=== PATIENT | female | born 1955 | race Caucasian/White ===

== ENCOUNTER → 2017-03-10 | Outpatient (CLI) | payer BC ==
[~2017-03-10] MED LIST: DIPH25TA32 PO; LEVO125T72 PO; MULTTAB58 PO; MXZC25 PO; OMEG10007 PO
--- NOTE | 2017-03-11 14:02 | MAMMOGRAPHY REPORT ---
BILATERAL DIGITAL SCREENING MAMMOGRAM TOMOSYNTHESIS WITH CAD: 03/10/2017 CLINICAL HISTORY: Routine screening. Patient has no complaints. TECHNIQUE: Breast tomosynthesis in addition to standard 2D mammography was performed. Current study was also evaluated with a Computer Aided Detection (CAD) system. COMPARISON: Comparison is made to exams dated: 03/05/2016 mammogram, 08/16/2013 mammogram, 08/24/2014 ma mmogram, 07/12/2012 mammogram, 07/09/2011 mammogram, and 06/25/2010 mammogram - [facility]. BREAST COMPOSITION: There are scattered areas of fibroglandular density in both breasts. FINDINGS: There is a stable grouping of punctate microcalcifications in the right upper outer quadran t. Stable nodularity in the superior right breast. No suspicious mass, architectural distortion or cluster of microcalcifications is seen. IMPRESSION: ACR BI-RADS CATEGORY 1: NEGATIVE There is no mammographic evidence of malignancy. A 1 year screening mammogram is recommended. The pa tient will receive written notification of the results. Approximately 10% of breast cancers are not detected with mammography. A negative mammographic report should not delay biopsy if a clinically suggestive mass is present. Abida Jackson M.D. ay/:03/10/2017 15:38:07 Change Room Attendant: Nemo Alonso, [facility] letter sent: Normal 1/2 BI-RADS Code: ACR BI-RADS Category 1: Negative
== END | disposition home or self-care (01) ==
LOC: C.MAMM 15:11
PROVIDERS: ATTEND Obstetrics & Gynecology
DX: Z12.31 Encounter for screening mammogram for malignant neoplasm of breast (principal)

== ENCOUNTER → 2018-03-11 | Outpatient (CLI) | payer BC ==
[~2018-03-11] MED LIST changes: -DIPH25TA32 PO; +DIPH25TA33 PO
--- NOTE | 2018-03-11 15:26 | MAMMOGRAPHY REPORT ---
BILATERAL DIGITAL SCREENING MAMMOGRAM TOMOSYNTHESIS WITH CAD: 03/11/2018 CLINICAL HISTORY: Routine screening. Patient has no complaints. TECHNIQUE: The study was acquired using full field digital technology and interpreted from soft copy. Breast tomosynthesis in addition to standard 2D mammography was performed. Current study was also ev aluated with a Computer Aided Detection (CAD) system. COMPARISON: Comparison is made to exams dated: 03/10/2017 mammogram, 03/05/2016 mammogram, 08/24/2014 teri mogram, 07/12/2012 mammogram, 07/09/2011 mammogram - [facility], and 01/24/2009. BREAST COMPOSITION: There are scattered areas of fibroglandular density in both breasts. FINDINGS: No suspicious masses, calcifications, or areas of architectural distortion are noted in either breast . There has been no significant interval change compared to prior exams. IMPRESSION: ACR BI-RADS CATEGORY 1: NEGATIVE There is no mammographic evidence of malignancy. A 1 year screening mammogram is recommended.( 019) The patient will receive written notification of the results. Some breast cancers are not detected with mammography. A negative mammographic report should not kristen y biopsy if a clinically suggestive mass is present. Jo-Ann Abbott M.D. ah/:03/11/2018 14:32:18 Oil Change Technician: RT David(Chasidy)(M), [facility] letter sent: Normal 1/2 BI-RADS Code: ACR BI-RADS Category 1: Negative
== END | disposition home or self-care (01) ==
LOC: C.MAMM 14:04
PROVIDERS: ATTEND Family Medicine
DX: Z12.31 Encounter for screening mammogram for malignant neoplasm of breast (principal)

== ENCOUNTER 2024-04-02 20:17 | Observation (INO) ==
--- NOTE | 2024-04-02 20:48 | Emergency Department Note ---
Impression & Plan COVID-19, Hypoxia, Generalized weakness ED Provider Note Name: JENNY CARVAJAL Age: 68 Sex: Female Arrives Via: Walk-In Informant: Patient ED Provider: Zackary Varner MD Chief Complaint: Illness Impression: As per impressions above Medical Decision Makin-year-old female with history of hypertension, dyslipidemia, hypothyroidism, diabetes, fatty liver arrives for evaluation of illness. Worsening illness for the last day associated weakness fatigue fevers and chills. Does have a cough and runny nose. Chest x-ray is reassuring, labs are unremarkable other than mildly elevated blood sugar as well as a positive COVID test. While in department patient's oxygen continues to drop and she is now requiring nasal cannula O2. She is not significantly dyspneic and does not have findings of DVT or PE at this time. I do not think CT PE study would be indicated given more likely cause is her COVID infection. Offered steroids as standard of care which patient declines at this time. Given her hypoxia hospitalist was consulted who had further discussions with her and I will bring her in for further management. Triage/Nursing Notes reviewed by Me Differential:COVID, flu, pneumonia, sepsis, viral NOS, many other pathologies considered Vital Signs: reviewed and remarkable for hypoxia, tachycardia Interventions: Normal saline bolus 1 L IV, Tylenol 1 g IV Labs:ED labs Reviewed by me and remarkable for positive COVID testing Imagin view chest x-ray as per my interpretation no infiltrate or effusion appreciated. Cardiac/Tele Monitoring: Cardiac Monitoring: An Order was placed for continuous cardiac monitoring. The monitor shows a rate of 120 with a sinus tach rhythm. Consults:Discussed with Dr. [facility] who will bring inpatient for further management Plan: Disposition:Hospitalization. Condition: Good History of Present Illness: 60-year-old female arrives for evaluation of illness. Patient has been sick for the last day or so. Increasing weakness fatigue generalized aches and pains. Associate with fevers and chills. Mild associated cough and runny nose. Does note that she has been having a bit of a sore throat. Patient has been using Tylenol periodically at home with mild improvement. Due to worsening weakness she arrives to the ER as she cannot even get around the house she feels so fatigued. Denies any falls, trauma, injuries. No known sick contacts. No difficulty breathing, chest pain, abdominal pain, nausea, vomiting, urinary symptoms, leg swelling, rashes or other concerning signs or symptoms Past Medical History: Diabetes, hypothyroidism, fatty liver, hyperlipidemia, Home Medications:See Below Allergies: Ibuprofen, naproxen, NSAIDs Vitals:Blood Pressure: 132/68, Pulse 116, RR 18, T 37.7C, O2 97% on RA Physical Exam: GENERAL: Patient is unwell/tired appearing and in moderate distress. Dry mucous membranes though rhinorrhea noted. RESPIRATORY: Mild tachypnea/dyspnea on examination. Clear to auscultation and equal bilaterally. CARDIOVASCULAR: Tachycardia.No murmur appreciated. GASTROINTESTINAL: Abdomen soft, non-tender, no peritonitis. EXTREMITIES: Normal motion all extremities, no cyanosis, no edema. NEUROLOGIC: Alert and oriented. No focal neurologic deficits appreciated SKIN: No rash, no jaundice, no diaphoresis. PSYCH: Appropriate GCS: 15 ED Course: Times/Reassessments: Patient is stable she is a bit hesitant about steroids though she is agreeable to hospitalization. Zackary Varner MD Past Med/Surg History Problem List (Updated 04/03/24 @ 01:05 by Zackary Varner MD) Generalized weakness (Acute) Hypoxia (Acute) COVID-19 (Acute) Dizziness Encounter to discuss test results Acute sinusitis History of colon polyps Encounter for pre-operative examination Hyperglycemia due to diabetes mellitus Elevated liver function tests UTI (urinary tract infection) Psychosocial stressors Fatigue Headache Left ankle injury (Acute) History of tooth extraction Routine health maintenance (Chronic) Abnormal liver function test (Acute) Benign hypertension (Chronic 11/18/12) Drug-induced anaphylaxis (Acute) Trochanteric bursitis (Acute) Vitamin D deficiency (Chronic) NAFLD (nonalcoholic fatty liver disease) H/O thyroidectomy (Acute 11/18/12) Acid reflux (Acute) Benign essential hypertension (Acute) Pawan's thyroiditis (Acute) hx Hyperlipidemia (Chronic) Hypothyroidism (Chronic) Uncontrolled diabetes mellitus (Chronic) Medical History Environmental and seasonal allergies History of Mohs micrographic surgery for skin cancer Surgical History Hx of colonoscopy History of dilatation and curettage Family History Mother Breast cancer Dementia Hypertension Transient ischemic attack, acute Father GERD (gastroesophageal reflux disease) Pancreatic cancer Denies family history of Ovarian cancer Prostate cancer Myocardial infarction Colorectal cancer Uterus cancer Social History Smoking Status: Never smoker Second Hand Exposure: No; Do You Dip or Chew Tobacco: No; Hx Alcohol Use: Yes Alcohol type: wine Hx Substance Use: No Preferred Language: Scottish Communication Ability: Effective Uniform Room Attendant Required: No Beliefs That Will Affect Care: None marital status: Current Living Situation: Spouse current occupational status: employed How many Children do You have: 2 Feels Safe at Home: Yes Childhood Exposure to Second-Hand Smoke: Yes Diet: regular caffeine: Yes Dental Care, Regularly: Yes Physical Activity Frequency: 1-2 Times per Week Seatbelt Use: always Sunscreen Use: Yes Assistive Devices: Glasses Allergies Allergies Allergy/AdvReac Type Severity Reaction Status Date / Time ibuprofen Allergy Severe tongue Verified 04/02/24 22:28 swelling naproxen Allergy Severe tongue Verified 04/02/24 22:28 swelling house dust mite Allergy Mild Sneezing Verified 04/02/24 22:28 NSAIDS (Non-Steroidal AdvReac Severe face,mouth, Verified 04/02/24 22:28 Anti-Inflamma and throat swelling Home Meds Home Medications Medication Instructions Recorded Confirmed ascorbic acid (vitamin C) 500 mg 500 mg PO QPM 11/20/18 04/02/24 tablet (Vitamin C) vitamin B complex 1 tab PO QPM 11/20/18 04/02/24 magnesium oxide 500 mg capsule 500 mg PO QPM 01/17/19 04/02/24 cholecalciferol (vitamin D3) 50 50 mcg PO QPM 07/04/21 04/02/24 mcg (2,000 unit) capsule potassium gluconate 600 mg (99 mg) 600 mg PO QPM 07/04/21 04/02/24 tablet mecobalamin (vitamin B12) 1,000 500 mcg PO QPM 03/17/22 04/02/24 mcg chewable tablet ferrous sulfate 325 mg (65 mg 325 mg PO QPM 02/19/23 04/02/24 iron) tablet,delayed release loratadine 10 mg capsule 10 mg PO QPM 10/29/23 04/02/24 triamterene 37.5 0.5 tab PO DAILY 02/17/24 04/02/24 mg-hydrochlorothiazide 25 mg tablet cranberry extract 500 mg capsule 500 mg PO QPM 04/02/24 04/02/24 epinephrine 0.3 mg/0.3 mL 0.3 mg IM DIRECTED PRN 04/02/24 04/02/24 injection, auto-injector hypersensitivity reaction levothyroxine 88 mcg tablet 88 mcg PO QPM 04/02/24 04/02/24 (Synthroid) Previous Rx's Medication Instructions Recorded atorvastatin 40 mg tablet 40 mg PO QPM #90 tabs 10/19/22 blood sugar diagnostic (Accu-Chek #200 ea 10/19/23 Guide test strips) blood-glucose meter (Accu-Chek #1 ea 10/19/23 Guide Glucose Meter) lancets (Accu-Chek Fastclix Lancet #50 ea 10/19/23 Drum) metformin 500 mg tablet,extended 1,000 mg (2 x 500 mg) PO BID 90 12/09/23 release 24 hr days #360 tabs meclizine 50 mg tablet 50 mg PO BID PRN dizziness #30 tabs 03/16/24 Results & Data (ED) Vital Signs Vital Signs - 24 hr 04/02/24 20:20 04/02/24 20:31 04/02/24 20:44 Temperature 37.7 C H Temperature Source Temporal Artery Scan Pulse Rate 121 H 116 H Pulse Rate [Apical] 115 H Pulse Rhythm Pulse Rhythm [Apical] Regular Pulse Strength [Apical] Normal Respiratory Rate 18 18 Respiratory Effort / Characteristics Non-Labored Spontaneous Non-Labored Spontaneous Respiratory Depth Normal Normal Respiratory Pattern Regular Regular Blood Pressure 132/68 Blood Pressure [Right Arm] 160/84 H Blood Pressure Mean 89 Blood Pressure Mean [Right Arm] 109 Blood Pressure Position [Right Arm] Lying Pulse Oximetry 97 95 Oxygen Delivery Method Room Air Room Air Oxygen Flow Rate Sepsis Recent Fever Within 48 Hours No Sepsis New/Unexplained Change in Mental Status N/A Sepsis Action Taken by Nursing No Action Required 04/02/24 22:18 04/02/24 22:58 04/02/24 23:00 Temperature 37.1 C Temperature Source Oral Pulse Rate 98 H Pulse Rate [Apical] 96 H 98 H Pulse Rhythm Regular Pulse Rhythm [Apical] Regular Regular Pulse Strength [Apical] Normal Normal Respiratory Rate 18 18 18 Respiratory Effort / Characteristics Non-Labored Spontaneous Non-Labored Spontaneous Respiratory Depth Normal Normal Respiratory Pattern Regular Regular Blood Pressure Blood Pressure [Right Arm] 126/75 140/73 Blood Pressure Mean Blood Pressure Mean [Right Arm] 92 95 Blood Pressure Position [Right Arm] Lying Lying Pulse Oximetry 94 93 87 L Oxygen Delivery Method Room Air Room Air Room Air Oxygen Flow Rate Sepsis Recent Fever Within 48 Hours Sepsis New/Unexplained Change in Mental Status Sepsis Action Taken by Nursing 04/02/24 23:02 04/03/24 00:00 04/03/24 00:22 Temperature Temperature Source Pulse Rate 96 H 96 H Pulse Rate [Apical] 95 H Pulse Rhythm Regular Pulse Rhythm [Apical] Regular Pulse Strength [Apical] Normal Respiratory Rate 18 18 Respiratory Effort / Characteristics Non-Labored Spontaneous Respiratory Depth Normal Respiratory Pattern Regular Blood Pressure Blood Pressure [Right Arm] 126/75 Blood Pressure Mean Blood Pressure Mean [Right Arm] 92 Blood Pressure Position [Right Arm] Lying Pulse Oximetry 95 94 Oxygen Delivery Method Nasal Cannula Nasal Cannula Oxygen Flow Rate 2 2 Sepsis Recent Fever Within 48 Hours Sepsis New/Unexplained Change in Mental Status Sepsis Action Taken by Nursing Laboratory Data 04/02/24 20:34 04/02/24 20:34 Lab Results 04/02/24 04/02/24 04/02/24 Range/Units 20:31 20:34 20:50 WBC 9.92 (4.8-10.8) K/ul RBC 5.70 H (4.20-5.40) M/uL Hgb 16.3 H (12.0-16.0) g/dl Hct 47.4 H (37.0-47.0) % MCV 83.2 (80.0-100.0) fL MCH 28.6 (25.0-34.0) pg MCHC 34.4 (32.0-36.0) g/dL RDW Std Deviation 40.2 (36.4-46.3) fL RDW Coeff of John 13.4 (11.5-14.5) % Plt Count 185 (130-400) K/uL MPV 9.2 L (9.4-12.4) fL Immature Gran % (Auto) 0.8 % Neut % (Auto) 88.2 % Lymph % (Auto) 6.6 % Murray % (Auto) 4.1 % Eos % (Auto) 0.1 % Baso % (Auto) 0.2 % Neut # (Auto) 8.75 H (1.40-6.50) K/uL Lymph # (Auto) 0.65 L (1.20-3.40) K/uL Murray # (Auto) 0.41 (0.11-0.59) K/uL Eos # (Auto) 0.01 (0.00-0.50) K/uL Baso # (Auto) 0.02 (0.00-0.20) K/uL Immature Gran # (Auto) 0.08 (0.01-0.20) K/uL Sodium 135 L (136-145) mmol/L Potassium 3.4 L (3.5-5.1) mmol/L Chloride 96 L (98-107) mmol/L Carbon Dioxide 29 (21-32) mmol/L Anion Gap 10 (3-11) BUN 12 (6-23) mg/dl Creatinine 0.72 (0.6-1.2) mg/dl Est Cr Clr Drug Dosing 70.0 ml/min Est GFR ( Amer) 99.7 ml/min Est GFR (Non-Af Amer) 86.1 ml/min BUN/Creatinine Ratio 16.7 (10-20) Glucose 207 H (70-99(Fasting)) mg/dl Lactate 1.5 (0.4-2.0) mmol/L Calcium 10.1 (8.6-10.3) mg/dl Magnesium 1.7 (1.7-2.4) mg/dl Total Bilirubin 2.2 H (0.2-1.0) mg/dl Direct Bilirubin 0.4 H (0-0.2) mg/dl AST 33 (13-39) U/L ALT 44 (7-52) U/L Alkaline Phosphatase 124 H (34-104) U/L Troponin I High Sens 5.4 (0-14) pg/ml Total Protein 8.7 H (6.0-8.3) gm/dl Albumin 5.1 H (3.4-5.0) gm/dl Lipase 23 (11-82) U/L Procalcitonin 0.14 (0-0.5) ng/ml Urine Color Urine Appearance (Clear) Urine pH (4.5-7.5) Ur Specific [place] (1.000-1.030) Urine Protein (Negative) Urine Glucose (UA) (Negative) Urine Ketones (Negative) Urine Blood (Negative) Urine Nitrite (Negative) Urine Bilirubin (Negative) Urine Urobilinogen (Negative) Ur Leukocyte Esterase (Negative) Lyme Disease Screen Negative (Negative) SARS-CoV-2 (PCR) POSITIVE A (Negative) Influenza Type A (PCR) Negative (Neg) Influenza Type B (PCR) Negative (Neg) RSV (RT-PCR) Negative (Neg) Group A Strep (PCR) (NotDetected) 04/02/24 04/02/24 Range/Units 20:59 23:23 WBC (4.8-10.8) K/ul RBC (4.20-5.40) M/uL Hgb (12.0-16.0) g/dl Hct (37.0-47.0) % MCV (80.0-100.0) fL MCH (25.0-34.0) pg MCHC (32.0-36.0) g/dL RDW Std Deviation (36.4-46.3) fL RDW Coeff of John (11.5-14.5) % Plt Count (130-400) K/uL MPV (9.4-12.4) fL Immature Gran % (Auto) % Neut % (Auto) % Lymph % (Auto) % [place] % (Auto) % Eos % (Auto) % Baso % (Auto) % Neut # (Auto) (1.40-6.50) K/uL Lymph # (Auto) (1.20-3.40) K/uL [place] # (Auto) (0.11-0.59) K/uL Eos # (Auto) (0.00-0.50) K/uL Baso # (Auto) (0.00-0.20) K/uL Immature Gran # (Auto) (0.01-0.20) K/uL Sodium (136-145) mmol/L Potassium (3.5-5.1) mmol/L Chloride (98-107) mmol/L Carbon Dioxide (21-32) mmol/L Anion Gap (3-11) BUN (6-23) mg/dl Creatinine (0.6-1.2) mg/dl Est Cr Clr Drug Dosing ml/min Est GFR ( Amer) ml/min Est GFR (Non-Af Amer) ml/min BUN/Creatinine Ratio (10-20) Glucose (70-99(Fasting)) mg/dl Lactate (0.4-2.0) mmol/L Calcium (8.6-10.3) mg/dl Magnesium (1.7-2.4) mg/dl Total Bilirubin (0.2-1.0) mg/dl Direct Bilirubin (0-0.2) mg/dl AST (13-39) U/L ALT (7-52) U/L Alkaline Phosphatase (34-104) U/L Troponin I High Sens (0-14) pg/ml Total Protein (6.0-8.3) gm/dl Albumin (3.4-5.0) gm/dl Lipase (11-82) U/L Procalcitonin (0-0.5) ng/ml Urine Color Yellow Urine Appearance Clear (Clear) Urine pH 6.0 (4.5-7.5) Ur Specific [place] 1.016 (1.000-1.030) Urine Protein Negative (Negative) Urine Glucose (UA) 2+ H (Negative) Urine Ketones Negative (Negative) Urine Blood Negative (Negative) Urine Nitrite Negative (Negative) Urine Bilirubin Negative (Negative) Urine Urobilinogen Negative (Negative) Ur Leukocyte Esterase Negative (Negative) Lyme Disease Screen (Negative) SARS-CoV-2 (PCR) (Negative) Influenza Type A (PCR) (Neg) Influenza Type B (PCR) (Neg) RSV (RT-PCR) (Neg) Group A Strep (PCR) NOT DETECTED (NotDetected) Administered Medications Discontinued Medications Sodium Chloride (Nss) 1,000 mls @ 999 mls/hr IV .Q1H1M ONE Stop: 04/02/24 21:45 Last Infusion: 04/02/24 22:16 Dose: Infused Documented By: Admin: 04/02/24 20:58 Dose: 999 mls/hr Documented By: IDD Acetaminophen (Ofirmev) 1,000 mg in 100 mls @ 400 mls/hr IV NOW STA Stop: 04/02/24 20:59 Last Infusion: 04/02/24 21:55 Dose: Infused Documented By: Admin: 04/02/24 20:58 Dose: 400 mls/hr Documented By: IDD Discharge Plan Visit Data Chief Complaint: Illness Stated Complaint: TIRED, UNSTABLE/DIZZY, EYE PAIN/DRY ED Provider: Zackary Varner Discharge Problem: COVID-19, Hypoxia, Generalized weakness Forms Stand Alone Forms: My [facility] Prescriptions Prescriptions: No Action atorvastatin 40 mg tablet 40 mg PO QPM Qty: 90 3RF metformin 500 mg tablet extended release 24 hr 1,000 mg PO BID 90 Days Qty: 360 1RF meclizine 50 mg tablet 50 mg PO BID PRN (Reason: dizziness) Qty: 30 3RF loratadine 10 mg capsule 10 mg PO QPM mecobalamin (vitamin B12) 1,000 mcg tablet,chewable 500 mcg PO QPM ferrous sulfate 325 mg (65 mg iron) tablet,delayed release (DR/EC) 325 mg PO QPM magnesium oxide 500 mg capsule 500 mg PO QPM potassium gluconate 600 mg (99 mg) tablet 600 mg PO QPM cholecalciferol (vitamin D3) 50 mcg (2,000 unit) capsule 50 mcg PO QPM (DME) Accu-Chek Guide test strips Strip See Dose Instructions .ROUTE .MEDSUPPLY Qty: 200 3RF Dose Instruction: As directed Rx Instructions: Use 2 times daily to check BSG (DME) blood-glucose meter [Accu-Chek Guide Glucose Meter] Misc See Dose Instructions .ROUTE .MEDSUPPLY Qty: 1 0RF Rx Instructions: As directed (DME) lancets [Accu-Chek Fastclix Lancet Drum] Misc See Dose Instructions .ROUTE .MEDSUPPLY Qty: 50 0RF Dose Instruction: As directed Rx Instructions: As directed ascorbic acid (vitamin C) [Vitamin C] 500 mg Tablet 500 mg PO QPM vitamin B complex Tablet 1 tab PO QPM triamterene-hydrochlorothiazid 37.5-25 mg tablet 0.5 tab PO DAILY Rx Instructions: TAKE 1/2 TABLET ONCE DAILY cranberry extract 500 mg Capsule 500 mg PO QPM Rx Instructions: administer with meals levothyroxine [Synthroid] 88 mcg tablet 88 mcg PO QPM Rx Instructions: Brand name drug dispensed as generic [id number] epinephrine 0.3 mg/0.3 mL auto-injector 0.3 mg IM DIRECTED PRN (Reason: hypersensitivity reaction) Referrals Referrals: Shahnaz Olguin MD [Primary Care Provider] -
[2024-04-02] MEDS: SODIUM CHLORIDE 0.9% 1,000 ML IV ONE (20:58)
[2024-04-02] MEDS: ACETAMINOPHEN 1,000 MG/100 ML VIAL IV STA (20:58)
[2024-04-02 21:16] LABS: Basophils # (auto) 0.02 K/uL (0.00-0.20); Basophils % (auto) 0.2 %; Eosinophils # (auto) 0.01 K/uL (0.00-0.50); Eosinophils % (auto) 0.1 %; Hematocrit (blood only) 47.4 % (37.0-47.0); Hemoglobin 16.3 g/dl (12.0-16.0); Immature Granulocytes # (auto) 0.08 K/uL (0.01-0.20); Immature Granulocytes % (auto) 0.8 %; Lymphocytes # (auto) 0.65 K/uL (1.20-3.40); Lymphocytes % (auto) 6.6 %; Mean Corpuscular Hemoglobin 28.6 pg (25.0-34.0); Mean Corpuscular Hgb Conc 34.4 g/dL (32.0-36.0); Mean Corpuscular Volume 83.2 fL (80.0-100.0); Mean Platelet Volume 9.2 fL (9.4-12.4); Monocytes # (auto) 0.41 K/uL (0.11-0.59); Monocytes % (auto) 4.1 %; Neutrophils # (auto) 8.75 K/uL (1.40-6.50); Neutrophils % (auto) 88.2 %; Platelet Count 185 K/uL (130-400); RDW Coefficient of Variation 13.4 % (11.5-14.5); RDW Standard Deviation 40.2 fL (36.4-46.3); White Blood Count 9.92 K/ul (4.8-10.8)
[2024-04-02 21:18] LABS: Albumin Level 5.1 gm/dl (3.4-5.0); BUN Creatinine Ratio 16.7 (10-20); Bilirubin Direct 0.4 mg/dl (0-0.2); Bilirubin,Total 2.2 mg/dl (0.2-1.0); Calcium 10.1 mg/dl (8.6-10.3); Est GFR (African American) 99.7 ml/min; Est GFR (Non-African American) 86.1 ml/min; Magnesium 1.7 mg/dl (1.7-2.4); Potassium 3.4 mmol/L (3.5-5.1); Total Protein 8.7 gm/dl (6.0-8.3)
[2024-04-02 21:25] LABS: Troponin I High Sensitivity 5.4 pg/ml (0-14)
[2024-04-02 21:50] LABS: Influenza A virus by PCR Negative (Neg); Influenza B virus by PCR Negative (Neg); RSV by PCR Negative (Neg); SARS CoV2 RNA(COVID-19) Ceph POSITIVE (Negative)
[2024-04-02 21:51] LABS: Lyme Screen Rflx Confirmation Negative (Negative)
[2024-04-02 22:54] LABS: Procalcitonin 0.14 ng/ml (0-0.5)
[2024-04-02 23:32] LABS: Appearance Urine Clear (Clear); Bilirubin Urine Negative (Negative); Blood Urine Negative (Negative); Color Urine Yellow; Glucose Urine UA 2+ (Negative); Ketones Urine Negative (Negative); Leukocyte Esterase Urine Negative (Negative); Nitrite Urine Negative (Negative); Protein Urine Negative (Negative); Specific Gravity Urine 1.016 (1.000-1.030); Urobilinogen Urine Negative (Negative)
--- NOTE | 2024-04-02 23:38 | History & Physical Report ---
Date of Service April 02, 2024 History of Present Illness Primary Care Provider: Shahnaz Olguin MD Allergies Allergy/AdvReac Type Severity Reaction Status Date / Time ibuprofen Allergy Severe tongue Verified 04/02/24 22:28 swelling naproxen Allergy Severe tongue Verified 04/02/24 22:28 swelling house dust mite Allergy Mild Sneezing Verified 04/02/24 22:28 NSAIDS (Non-Steroidal AdvReac Severe face,mouth, Verified 04/02/24 22:28 Anti-Inflamma and throat swelling Home Medications Medication Instructions Recorded Confirmed Type ascorbic acid (vitamin C) 500 mg 500 mg PO QPM 11/20/18 04/02/24 History tablet (Vitamin C) vitamin B complex 1 tab PO QPM 11/20/18 04/02/24 History magnesium oxide 500 mg capsule 500 mg PO QPM 01/17/19 04/02/24 History cholecalciferol (vitamin D3) 50 50 mcg PO QPM 07/04/21 04/02/24 History mcg (2,000 unit) capsule potassium gluconate 600 mg (99 mg) 600 mg PO QPM 07/04/21 04/02/24 History tablet mecobalamin (vitamin B12) 1,000 500 mcg PO QPM 03/17/22 04/02/24 History mcg chewable tablet atorvastatin 40 mg tablet 40 mg PO QPM #90 tabs 10/19/22 04/02/24 Rx ferrous sulfate 325 mg (65 mg 325 mg PO QPM 02/19/23 04/02/24 History iron) tablet,delayed release blood sugar diagnostic (Accu-Chek #200 ea 10/19/23 01/04/24 Rx Guide test strips) blood-glucose meter (Accu-Chek #1 ea 10/19/23 10/29/23 Rx Guide Glucose Meter) lancets (Accu-Chek Fastclix Lancet #50 ea 10/19/23 10/29/23 Rx Drum) loratadine 10 mg capsule 10 mg PO QPM 10/29/23 04/02/24 History metformin 500 mg tablet,extended 1,000 mg (2 x 500 mg) PO BID 90 12/09/23 04/02/24 Rx release 24 hr days #360 tabs triamterene 37.5 0.5 tab PO DAILY 02/17/24 04/02/24 History mg-hydrochlorothiazide 25 mg tablet meclizine 50 mg tablet 50 mg PO BID PRN dizziness #30 tabs 03/16/24 04/02/24 Rx cranberry extract 500 mg capsule 500 mg PO QPM 04/02/24 04/02/24 History epinephrine 0.3 mg/0.3 mL 0.3 mg IM DIRECTED PRN 04/02/24 04/02/24 History injection, auto-injector hypersensitivity reaction levothyroxine 88 mcg tablet 88 mcg PO QPM 04/02/24 04/02/24 History (Synthroid) Past Med/Surg History Problem List (Updated 03/03/24 @ 00:07 by Kayden Molina) Dizziness Encounter to discuss test results Acute sinusitis History of colon polyps Encounter for pre-operative examination Hyperglycemia due to diabetes mellitus Elevated liver function tests UTI (urinary tract infection) Psychosocial stressors Fatigue Headache Left ankle injury (Acute) History of tooth extraction Routine health maintenance (Chronic) Abnormal liver function test (Acute) Benign hypertension (Chronic 11/18/12) Drug-induced anaphylaxis (Acute) Trochanteric bursitis (Acute) Vitamin D deficiency (Chronic) NAFLD (nonalcoholic fatty liver disease) H/O thyroidectomy (Acute 11/18/12) Acid reflux (Acute) Benign essential hypertension (Acute) Pawan's thyroiditis (Acute) hx Hyperlipidemia (Chronic) Hypothyroidism (Chronic) Uncontrolled diabetes mellitus (Chronic) Medical History Environmental and seasonal allergies History of Mohs micrographic surgery for skin cancer Surgical History Hx of colonoscopy History of dilatation and curettage Family History Mother Breast cancer Dementia Hypertension Transient ischemic attack, acute Father GERD (gastroesophageal reflux disease) Pancreatic cancer Denies family history of Ovarian cancer Prostate cancer Myocardial infarction Colorectal cancer Uterus cancer Social History Smoking Status: Never smoker Second Hand Exposure: No; Do You Dip or Chew Tobacco: No; Hx Alcohol Use: Yes Alcohol type: wine Hx Substance Use: No Preferred Language: Urdu Communication Ability: Effective Geospatial Technologist Required: No Beliefs That Will Affect Care: None marital status: Current Living Situation: Spouse current occupational status: employed How many Children do You have: 2 Feels Safe at Home: Yes Childhood Exposure to Second-Hand Smoke: Yes Diet: regular caffeine: Yes Dental Care, Regularly: Yes Physical Activity Frequency: 1-2 Times per Week Seatbelt Use: always Sunscreen Use: Yes Assistive Devices: Glasses Results & Data Results & Data Vital Signs (Past 12 Hours) Vital Signs Temp Pulse Pulse Resp BP BP Pulse Ox 04/02/24 23:02 96 H 18 95 04/02/24 23:00 98 H 18 87 L 04/02/24 22:58 37.1 C 98 H 18 140/73 93 04/02/24 22:18 96 H 18 126/75 94 04/02/24 20:44 115 H 18 160/84 H 95 04/02/24 20:31 116 H 04/02/24 20:20 37.7 C H 121 H 18 132/68 97 O2 Del Method O2 Flow Rate 04/02/24 23:02 Nasal Cannula 2 04/02/24 23:00 Room Air 04/02/24 22:58 Room Air 04/02/24 22:18 Room Air 04/02/24 20:44 Room Air 04/02/24 20:31 04/02/24 20:20 Room Air
--- NOTE | 2024-04-03 00:35 | Hospitalist Consultation ---
Date of Consultation April 03, 2024 History of Present Illness Allergies Allergy/AdvReac Type Severity Reaction Status Date / Time ibuprofen Allergy Severe tongue Verified 04/02/24 22:28 swelling naproxen Allergy Severe tongue Verified 04/02/24 22:28 swelling house dust mite Allergy Mild Sneezing Verified 04/02/24 22:28 NSAIDS (Non-Steroidal AdvReac Severe face,mouth, Verified 04/02/24 22:28 Anti-Inflamma and throat swelling Home Medications Medication Instructions Recorded Confirmed Type ascorbic acid (vitamin C) 500 mg 500 mg PO QPM 11/20/18 04/02/24 History tablet (Vitamin C) vitamin B complex 1 tab PO QPM 11/20/18 04/02/24 History magnesium oxide 500 mg capsule 500 mg PO QPM 01/17/19 04/02/24 History cholecalciferol (vitamin D3) 50 50 mcg PO QPM 07/04/21 04/02/24 History mcg (2,000 unit) capsule potassium gluconate 600 mg (99 mg) 600 mg PO QPM 07/04/21 04/02/24 History tablet mecobalamin (vitamin B12) 1,000 500 mcg PO QPM 03/17/22 04/02/24 History mcg chewable tablet atorvastatin 40 mg tablet 40 mg PO QPM #90 tabs 10/19/22 04/02/24 Rx ferrous sulfate 325 mg (65 mg 325 mg PO QPM 02/19/23 04/02/24 History iron) tablet,delayed release blood sugar diagnostic (Accu-Chek #200 ea 10/19/23 01/04/24 Rx Guide test strips) blood-glucose meter (Accu-Chek #1 ea 10/19/23 10/29/23 Rx Guide Glucose Meter) lancets (Accu-Chek Fastclix Lancet #50 ea 10/19/23 10/29/23 Rx Drum) loratadine 10 mg capsule 10 mg PO QPM 10/29/23 04/02/24 History metformin 500 mg tablet,extended 1,000 mg (2 x 500 mg) PO BID 90 12/09/23 04/02/24 Rx release 24 hr days #360 tabs triamterene 37.5 0.5 tab PO DAILY 02/17/24 04/02/24 History mg-hydrochlorothiazide 25 mg tablet meclizine 50 mg tablet 50 mg PO BID PRN dizziness #30 tabs 03/16/24 04/02/24 Rx cranberry extract 500 mg capsule 500 mg PO QPM 04/02/24 04/02/24 History epinephrine 0.3 mg/0.3 mL 0.3 mg IM DIRECTED PRN 04/02/24 04/02/24 History injection, auto-injector hypersensitivity reaction levothyroxine 88 mcg tablet 88 mcg PO QPM 04/02/24 04/02/24 History (Synthroid) Patient History Medical History Environmental and seasonal allergies History of Mohs micrographic surgery for skin cancer Surgical History Hx of colonoscopy History of dilatation and curettage Family History Mother Breast cancer Dementia Hypertension Transient ischemic attack, acute Father GERD (gastroesophageal reflux disease) Pancreatic cancer Denies family history of Ovarian cancer Prostate cancer Myocardial infarction Colorectal cancer Uterus cancer Social History Smoking Status: Never smoker Second Hand Exposure: No; Do You Dip or Chew Tobacco: No; Hx Alcohol Use: Yes Alcohol type: wine Hx Substance Use: No Preferred Language: R[place] Communication Ability: Effective Post Anesthesia Room Nurse Required: No Beliefs That Will Affect Care: None marital status: Current Living Situation: Spouse current occupational status: employed How many Children do You have: 2 Feels Safe at Home: Yes Childhood Exposure to Second-Hand Smoke: Yes Diet: regular caffeine: Yes Dental Care, Regularly: Yes Physical Activity Frequency: 1-2 Times per Week Seatbelt Use: always Sunscreen Use: Yes Assistive Devices: Glasses Results & Data Results & Data Vital Signs (Past 12 Hours) Vital Signs Temp Pulse Pulse Resp BP BP Pulse Ox 04/03/24 00:22 96 H 04/03/24 00:00 95 H 18 126/75 94 04/02/24 23:02 96 H 18 95 04/02/24 23:00 98 H 18 87 L 04/02/24 22:58 37.1 C 98 H 18 140/73 93 04/02/24 22:18 96 H 18 126/75 94 04/02/24 20:44 115 H 18 160/84 H 95 04/02/24 20:31 116 H 04/02/24 20:20 37.7 C H 121 H 18 132/68 97 O2 Del Method O2 Flow Rate 04/03/24 00:22 04/03/24 00:00 Nasal Cannula 2 04/02/24 23:02 Nasal Cannula 2 04/02/24 23:00 Room Air 04/02/24 22:58 Room Air 04/02/24 22:18 Room Air 04/02/24 20:44 Room Air 04/02/24 20:31 04/02/24 20:20 Room Air
--- NOTE | 2024-04-03 01:00 | History & Physical Report ---
Date of Service April 03, 2024 Assessment & Plan (1) COVID-19: Plan: -Patient with a positive COVID-19 in the ED. -Did become hypoxic when ambulating around the room, started on oxygen nasal cannula in the ED. -COVID-19 precautions on. -Will start on a Anoro daily to help with COVID-19 symptoms. -DuoNebs as needed. -Will start on Decadron 4 mg IV daily. Will hold off on higher dose due to her diabetes being uncontrolled. -Currently on room air at time of admission. -Lovenox DVT prophylaxis. -CBC, CMP, hemoglobin A1c, and magnesium in the a.m. -Anticipate DC in the a.m. if stable. (2) Hypoxia: Plan: -As above, became hypoxic while ambulating around. -Not requiring any oxygen at rest. -May consider two-step prior to discharge. (3) Generalized weakness: Plan: -Generalized weakness most likely secondary to COVID-19. -1 L NSS in the ED. Will see how patient does with the above therapy. (4) Benign essential hypertension: Plan: -Continue home medications (5) Hyperlipidemia: Plan: -Continue home medications (6) Hypothyroidism: Plan: -Continue home medications. (7) Uncontrolled diabetes mellitus: Plan: - Patient's home regimen held on admission - Continue BSG checks, sliding-scale insulin, hypoglycemic protocol -Check hemoglobin A1c in the a.m. Plan Nutrition: DM 2 Code status: Full code DVT ppx: Lovenox Dispo: MedSurg with telemetry History of Present Illness Chief Complaint: COVID-19, hypoxia Primary Care Provider: Shahnaz Olguin MD Patient is a 68-year-old female with past medical history of hypertension, dyslipidemia, hypothyroidism, diabetes, and fatty liver who presents to the hospital for reports of feeling extremely tired all day. States that she has been feeling fatigued since she woke up this morning. She does state that she has been having some cough as well as fever. Does state that she also has been having some sore throat. She has been using Tylenol at home with mild improvement. States that she has been having trouble walking with this fatigue. Denies any shortness of breath, chest pain, abdominal pain, nausea or vomiting. Patient was found to be COVID-positive in the ED. Allergies Allergy/AdvReac Type Severity Reaction Status Date / Time ibuprofen Allergy Severe tongue Verified 04/02/24 22:28 swelling naproxen Allergy Severe tongue Verified 04/02/24 22:28 swelling house dust mite Allergy Mild Sneezing Verified 04/02/24 22:28 NSAIDS (Non-Steroidal AdvReac Severe face,mouth, Verified 04/02/24 22:28 Anti-Inflamma and throat swelling Home Medications Medication Instructions Recorded Confirmed Type ascorbic acid (vitamin C) 500 mg 500 mg PO QPM 11/20/18 04/02/24 History tablet (Vitamin C) vitamin B complex 1 tab PO QPM 11/20/18 04/02/24 History magnesium oxide 500 mg capsule 500 mg PO QPM 01/17/19 04/02/24 History cholecalciferol (vitamin D3) 50 50 mcg PO QPM 07/04/21 04/02/24 History mcg (2,000 unit) capsule potassium gluconate 600 mg (99 mg) 600 mg PO QPM 07/04/21 04/02/24 History tablet mecobalamin (vitamin B12) 1,000 500 mcg PO QPM 03/17/22 04/02/24 History mcg chewable tablet atorvastatin 40 mg tablet 40 mg PO QPM #90 tabs 10/19/22 04/02/24 Rx ferrous sulfate 325 mg (65 mg 325 mg PO QPM 02/19/23 04/02/24 History iron) tablet,delayed release blood sugar diagnostic (Accu-Chek #200 ea 10/19/23 01/04/24 Rx Guide test strips) blood-glucose meter (Accu-Chek #1 ea 10/19/23 10/29/23 Rx Guide Glucose Meter) lancets (Accu-Chek Fastclix Lancet #50 ea 10/19/23 10/29/23 Rx Drum) loratadine 10 mg capsule 10 mg PO QPM 10/29/23 04/02/24 History metformin 500 mg tablet,extended 1,000 mg (2 x 500 mg) PO BID 90 12/09/23 04/02/24 Rx release 24 hr days #360 tabs triamterene 37.5 0.5 tab PO DAILY 02/17/24 04/02/24 History mg-hydrochlorothiazide 25 mg tablet meclizine 50 mg tablet 50 mg PO BID PRN dizziness #30 tabs 03/16/24 04/02/24 Rx cranberry extract 500 mg capsule 500 mg PO QPM 04/02/24 04/02/24 History epinephrine 0.3 mg/0.3 mL 0.3 mg IM DIRECTED PRN 04/02/24 04/02/24 History injection, auto-injector hypersensitivity reaction levothyroxine 88 mcg tablet 88 mcg PO QPM 04/02/24 04/02/24 History (Synthroid) Past Med/Surg History Problem List (Updated 04/03/24 @ 01:05 by Zackary Varner MD) Generalized weakness (Acute) Hypoxia (Acute) COVID-19 (Acute) Dizziness Encounter to discuss test results Acute sinusitis History of colon polyps Encounter for pre-operative examination Hyperglycemia due to diabetes mellitus Elevated liver function tests UTI (urinary tract infection) Psychosocial stressors Fatigue Headache Left ankle injury (Acute) History of tooth extraction Routine health maintenance (Chronic) Abnormal liver function test (Acute) Benign hypertension (Chronic 11/18/12) Drug-induced anaphylaxis (Acute) Trochanteric bursitis (Acute) Vitamin D deficiency (Chronic) NAFLD (nonalcoholic fatty liver disease) H/O thyroidectomy (Acute 11/18/12) Acid reflux (Acute) Benign essential hypertension (Acute) Pawan's thyroiditis (Acute) hx Hyperlipidemia (Chronic) Hypothyroidism (Chronic) Uncontrolled diabetes mellitus (Chronic) Medical History Environmental and seasonal allergies History of Mohs micrographic surgery for skin cancer Surgical History Hx of colonoscopy History of dilatation and curettage Family History Mother Breast cancer Dementia Hypertension Transient ischemic attack, acute Father GERD (gastroesophageal reflux disease) Pancreatic cancer Denies family history of Ovarian cancer Prostate cancer Myocardial infarction Colorectal cancer Uterus cancer Social History Smoking Status: Never smoker Second Hand Exposure: Yes (childhood); Do You Dip or Chew Tobacco: No; Hx Alcohol Use: Yes Alcohol type: beer, wine and hard liquor Hx Substance Use: No Preferred Language: [place] Communication Ability: Effective Asian Studies Professor Required: No Beliefs That Will Affect Care: None marital status: Current Living Situation: Spouse current occupational status: employed How many Children do You have: 2 Other Information That Helps Us Care for You: No Feels Safe at Home: Yes Childhood Exposure to Second-Hand Smoke: Yes Diet: regular caffeine: Yes Dental Care, Regularly: Yes Physical Activity Frequency: 1-2 Times per Week Seatbelt Use: always Sunscreen Use: Yes Assistive Devices: Glasses Review of Systems Review of Systems: All systems reviewed & are unremarkable except as noted in Subjective Physical Exam Physical Exam: Constitutional: well-appearing, no acute distress HEENT: NCAT, no conjunctival injection CV: regular rhythm, no murmur appreciated, extremities well-perfused, no LE edema Resp: CTABL, no wheezes/rales/rhonchi appreciated, no increased work of breathing GI: soft, nondistended, nontender, BS normoactive MSK: no gross deformities appreciated Skin: warm, dry, no rash appreciated Neuro: alert, oriented, no focal neurologic deficit appreciated Results & Data Results & Data Vital Signs (Past 12 Hours) Vital Signs Temp Pulse Pulse Resp BP BP Pulse Ox 04/03/24 00:22 96 H 04/03/24 00:00 95 H 18 126/75 94 04/02/24 23:02 96 H 18 95 04/02/24 23:00 98 H 18 87 L 04/02/24 22:58 37.1 C 98 H 18 140/73 93 04/02/24 22:18 96 H 18 126/75 94 04/02/24 20:44 115 H 18 160/84 H 95 04/02/24 20:31 116 H 04/02/24 20:20 37.7 C H 121 H 18 132/68 97 O2 Del Method O2 Flow Rate 04/03/24 00:22 04/03/24 00:00 Nasal Cannula 2 04/02/24 23:02 Nasal Cannula 2 04/02/24 23:00 Room Air 04/02/24 22:58 Room Air 04/02/24 22:18 Room Air 04/02/24 20:44 Room Air 04/02/24 20:31 04/02/24 20:20 Room Air Supervising Physician Co-Signing Physician Notes Attending addendum: I have physically seen this patient, have supervised the medical residents activities, and agree with the H&P unless as otherwise noted. Assessment and Plan: COVID-19 infection- Symptoms of mild hypoxia and generalized fatigue and weakness suggestive of adrenal insufficiency Patient will be started on low-dose dexamethasone 4 mg IV due to her concerns regarding affecting her blood sugar Start Anoro Ellipta daily Albuterol HFA 2 puffs every 4 hours with spacer as needed Generalized weakness- Likely secondary to mild adrenal insufficiency associated with COVID-19 Follow improvement with dexamethasone IV fluids as noted for mild dehydration due to decreased oral intake, status post 1 L normal saline bolus in the ED Diabetes mellitus- Glucose 207 on admission Expect an increase while on dexamethasone Insulin and Accu-Cheks as noted Check hemoglobin A1c Hypertension- Continue current regimen with hold parameters Resident Activity Tracking Resident Involvement: Resident Care Provided Care Provided: Adult Hospital Medicine (5) Hyperlipidemia Hyperlipidemia type: mixed hyperlipidemia Qualified Code(s): E78.2 - Mixed hyperlipidemia (6) Hypothyroidism Hypothyroidism type: acquired Qualified Code(s): E03.9 - Hypothyroidism, unspecified (7) Uncontrolled diabetes mellitus Diabetes mellitus type: type 2 Glycemic state: with hyperglycemia Qualified Code(s): E11.65 - Type 2 diabetes mellitus with hyperglycemia
[2024-04-03] MEDS ORDERED: ALBUT/IPRATROP 3MG/0.5MG NEB 3 ML VIAL NEB PRN (01:58)
[2024-04-03 05:23] VITALS: BP 146/79; TEMP 99.5
[2024-04-03] MEDS: ACETAMINOPHEN 325 MG TAB PO PRN (05:57)
[2024-04-03] MEDS: CHLORASEPTIC (PHENOL) 1.4% SOLN 180 ML BTL MT PRN (05:57)
--- NOTE | 2024-04-03 06:36 | Billing Data ---
Date of Service April 03, 2024 Coding Level of Care Code 66689 INT INP/OBS CARE
[2024-04-03 07:52] LABS: Basophils # (auto) 0.01 K/uL (0.00-0.20); Basophils % (auto) 0.1 %; Hematocrit (blood only) 37.4 % (37.0-47.0); Hemoglobin 12.8 g/dl (12.0-16.0); Immature Granulocytes # (auto) 0.04 K/uL (0.01-0.20); Immature Granulocytes % (auto) 0.5 %; Lymphocytes # (auto) 0.63 K/uL (1.20-3.40); Mean Corpuscular Hemoglobin 28.3 pg (25.0-34.0); Mean Corpuscular Hgb Conc 34.2 g/dL (32.0-36.0); Mean Corpuscular Volume 82.7 fL (80.0-100.0); Mean Platelet Volume 9.3 fL (9.4-12.4); Monocytes # (auto) 0.53 K/uL (0.11-0.59); Monocytes % (auto) 6.7 %; Neutrophils # (auto) 6.65 K/uL (1.40-6.50); Neutrophils % (auto) 84.7 %; Platelet Count 155 K/uL (130-400); RDW Coefficient of Variation 13.6 % (11.5-14.5); RDW Standard Deviation 40.7 fL (36.4-46.3); Red Blood Count 4.52 M/uL (4.20-5.40); White Blood Count 7.86 K/ul (4.8-10.8)
[2024-04-03] MEDS: ALBUTEROL HFA 8 GM INHALER INH SCH (07:59)
[2024-04-03 08:02] VITALS: RESP 16
[2024-04-03 08:07] LABS: Estimated Average Glucose 194 mg/dl; Hemoglobin A1C 8.4 % (4.5-5.6)
[2024-04-03] MEDS: ENOXAPARIN INJ 40 MG/0.4 ML SYR SQ SCH (08:09)
[2024-04-03] MEDS: UMECLIDINIUM/VILANTEROL 62.5/25MCG 7 PUFFS/INHALER INH SCH (08:11)
[2024-04-03] MEDS: dexAMETHasone 4 MG in SYRINGE 0 ML IV SCH (08:11)
[2024-04-03 08:24] LABS: Albumin Globulin Ratio 1.5 (0.9-2); Albumin Level 3.8 gm/dl (3.4-5.0); Bilirubin,Total 1.3 mg/dl (0.2-1.0); Calcium 8.1 mg/dl (8.6-10.3); Creatinine Clr Calc Pharmacy 100.8 ml/min; Est GFR (African American) 115.3 ml/min; Est GFR (Non-African American) 99.4 ml/min; Globulin 2.6 gm/dl (2.5-4.0); Magnesium 1.7 mg/dl (1.7-2.4); Potassium 3.4 mmol/L (3.5-5.1); Total Protein 6.4 gm/dl (6.0-8.3)
--- NOTE | 2024-04-03 08:30 | XRay Report ---
XR chest 1V portable HISTORY: illness COMPARISON: Chest 02/17/2024. FINDINGS: The lungs are clear. Cardiac silhouette is normal in size. No pleural effusions. No pneumot horax. Surgical clips noted within the left neck base. IMPRESSION: No acute process. ACT 112: Negative or not required by law. Electronically signed by: Felipe Arnold M.D. 04/03/2024 8:29 AM
[2024-04-03] MEDS: REMDESIVIR 200 MG in SODIUM CHLORIDE 0.9% 210 ML IV ONE (08:45)
[2024-04-03] MEDS ORDERED: TRIAMTERENE/HCTZ 37.5/25MG TAB PO SCH (09:00)
[2024-04-03] MEDS: POTASSIUM CHLORIDE CRTAB 20 MEQ TABCR PO STA (10:55)
[2024-04-03 11:27] VITALS: PULSE 83
[2024-04-03 11:28] VITALS: O2SAT 97
--- NOTE | 2024-04-03 11:33 | Discharge Summary ---
Discharge Summary Date of Service April 03, 2024 Principal Dx & Hospital Course #1 = Principal Diagnosis (1) COVID-19: P/w profound fatigue, sore throat, fevers at home-Patient with a positive COVID- 19 in the ED. Did become hypoxic when ambulating around the room, started on oxygen nasal cannula in the ED--she received one dose of IV dexamethasone, 1 dose of Remdesevir, and had a 2 step walk test prior to discharge. She had a POx of 94% at rest and went up to 98% with ambulation and no longer needs supplemental O2. Her CXR was normal She was mildly dehydrated and w/ mild hypokalemia which improved with 1L of IVFs and po potassium was given. She was overall feeling much better and was able to ambulate around the room without problems Dc to home with 4 more days of dexamethasone 4mg daily--> shortened course due to hyperglycemia from steroids Dc to home with Paxlovid 5 day course Stable for discharge to home (2) Hypoxia: as above, resolved (3) Generalized weakness: as above, improved (4) Benign essential hypertension: Held Dyazide while here for dehydration, gave 1 L IVFs can resume tomorrow after discharge BPs stable (5) Hyperlipidemia: Hold atorvastatin while on Paxlovid (6) Hypothyroidism: continue home LT4 (7) Uncontrolled diabetes mellitus: HgbA1C elevated at 8.4%, needs f/u with PCP and should likely add on second agent to her metformin regimen resume metformin on discharge It appears she was prescribed Jardiance earlier this year but not on her home med rec now? f/u PCP/Endo Plan DVT ppx: Lovenox Dispo: dc to home Notes For Next Care Provider Medication Changes From Visit Added Paxlovid x 5 day course Added dexamethasone 4mg po daily x 4 more days HOLD atorvastatin while on Paxlovid Admission HPI Per Admitting Provider Patient is a 68-year-old female with past medical history of hypertension, dyslipidemia, hypothyroidism, diabetes, and fatty liver who presents to the hospital for reports of feeling extremely tired all day. States that she has been feeling fatigued since she woke up this morning. She does state that she has been having some cough as well as fever. Does state that she also has been having some sore throat. She has been using Tylenol at home with mild improvement. States that she has been having trouble walking with this fatigue. Denies any shortness of breath, chest pain, abdominal pain, nausea or vomiting. Patient was found to be COVID-positive in the ED. Discharge Exam Constitutional WD/WN, vitals as above Eyes + anicteric sclerae Respiratory normal respiratory effort, lungs clear to auscultation Cardiovascular RRR, no murmur, no edema Skin no rashes, warm and dry Psychiatric A+Ox3, euthymic affect Discharge Plan Discharge Items Patient Disposition: Home - Self-Care Reason For Visit: COVID, HYPOXIA Discharge Diagnosis: COVID-19 Acute respiratory failure with hypoxia Dehydration Condition on Discharge: Good Activity: As commented below Bathing: No limitations Exercise/Sports: Gradually increase as tolerated Driving/Machine Use: No limitations Weightbearing: Full weightbearing Non-emergency contact: Primary Care Provider Call non-emergency contact if: you have any medication questions and your symptoms worsen Follow-up/Referrals: Shahnaz Olguin MD [Primary Care Provider] - (Follow up within 1-2 weeks) Diet: Carb Consistent or DM2 Addtl Attending Provider Instructions: You were admitted with mildly low oxygen levels and profound fatigue from having COVID-19. You did not have pneumonia on your chest xray. You initially needed some supplemental oxygen on admission, but you were tested by the respiratory therapist before discharge and you no longer needed any extra oxygen even with walking. You were dehydrated and this improved with receiving IV fluids. Your potassium was mildly low and this was replaced with oral potassium pills. Please keep yourself as active as you can with walking around to help prevent blood clots in the legs associated with COVID-19 and inactivity. If you develop leg pain or swelling, shortness of breath, chest pain, or any other new or concerning symptoms, please return to the hospital. You should finish out a short course of steroid pills to reduce inflammation in the lungs and improve your oxygen levels.You can also take Paxlovid twice a day as an antiviral medicine to decrease your length of illness. This medicine can cause nausea-if this occurs, please reach out to your PCP for guidance. You should HOLD your atorvastatin while on Paxlovid as they can interact. Pending Studies at Discharge: No Stand-Alone Forms: My [employer], Work/School Release, Smoking Cessation Medications and DC Order Prescriptions: New acetaminophen 325 mg Tablet 650 mg PO Q4H PRN (Reason: fever or pain) Qty: 30 0RF Rx Instructions: OTC dexamethasone 4 mg tablet 4 mg PO DAILY Qty: 4 0RF Paxlovid 300 mg (150 mg x 2)-100 mg tablets,dose pack See Rx Instructions .ROUTE .COMPLEX Qty: 30 0RF Rx Instructions: take TWO 150 mg tablets of nirmatrelvir with ONE 100 mg tablet of ritonavir twice daily for 5 days Sore Throat (phenol) 1.4 % Aerosol,[place] 1 spray MT Q2H PRN (Reason: sore throat) Qty: 177 0RF Continued metformin 500 mg tablet extended release 24 hr 1,000 mg PO BID 90 Days Qty: 360 1RF meclizine 50 mg tablet 50 mg PO BID PRN (Reason: dizziness) Qty: 30 3RF loratadine 10 mg capsule 10 mg PO QPM mecobalamin (vitamin B12) 1,000 mcg tablet,chewable 500 mcg PO QPM ferrous sulfate 325 mg (65 mg iron) tablet,delayed release (DR/EC) 325 mg PO QPM magnesium oxide 500 mg capsule 500 mg PO QPM potassium gluconate 600 mg (99 mg) tablet 600 mg PO QPM cholecalciferol (vitamin D3) 50 mcg (2,000 unit) capsule 50 mcg PO QPM (DME) Accu-Chek Guide test strips Strip See Dose Instructions .ROUTE .MEDSUPPLY Qty: 200 3RF Dose Instruction: As directed Rx Instructions: Use 2 times daily to check BSG (DME) blood-glucose meter [Accu-Chek Guide Glucose Meter] Misc See Dose Instructions .ROUTE .MEDSUPPLY Qty: 1 0RF Rx Instructions: As directed (DME) lancets [Accu-Chek Fastclix Lancet Drum] Misc See Dose Instructions .ROUTE .MEDSUPPLY Qty: 50 0RF Dose Instruction: As directed Rx Instructions: As directed ascorbic acid (vitamin C) [Vitamin C] 500 mg Tablet 500 mg PO QPM vitamin B complex Tablet 1 tab PO QPM triamterene-hydrochlorothiazid 37.5-25 mg tablet 0.5 tab PO DAILY Rx Instructions: TAKE 1/2 TABLET ONCE DAILY cranberry extract 500 mg Capsule 500 mg PO QPM Rx Instructions: administer with meals levothyroxine [Synthroid] 88 mcg tablet 88 mcg PO QPM Rx Instructions: Brand name drug dispensed as generic [id number] epinephrine 0.3 mg/0.3 mL auto-injector 0.3 mg IM DIRECTED PRN (Reason: hypersensitivity reaction) Held atorvastatin 40 mg tablet 40 mg PO QPM Qty: 90 3RF Hold Instructions: Resume on 04/09/24. Hold while on Paxlovid Discharge Orders: Discharge Order (Routine); Ordered 04/03/24 Ordered By: Cristal Albrecht Admission Data Admit Date/Time: 04/03/24 01:07 Attending Provider: Cristal Albrecht Admit Provider: Steven Benítez Primary Care Provider: Shahnaz Olguin Other Providers: Azael Alexander Hospital Stay Data Consultations 04/02/24 23:14 ED Decision to Admit Stat Pending Results Patient Have Any Pending Studies at Discharge: No Discharge Instructions Given to Patient (Per Discharging Provider) You were admitted with mildly low oxygen levels and profound fatigue from having COVID-19. You did not have pneumonia on your chest xray. You initially needed some supplemental oxygen on admission, but you were tested by the respiratory therapist before discharge and you no longer needed any extra oxygen even with walking. You were dehydrated and this improved with receiving IV fluids. Your potassium was mildly low and this was replaced with oral potassium pills. Please keep yourself as active as you can with walking around to help prevent blood clots in the legs associated with COVID-19 and inactivity. If you develop leg pain or swelling, shortness of breath, chest pain, or any other new or concerning symptoms, please return to the hospital. You should finish out a short course of steroid pills to reduce inflammation in the lungs and improve your oxygen levels.You can also take Paxlovid twice a day as an antiviral medicine to decrease your length of illness. This medicine can cause nausea-if this occurs, please reach out to your PCP for guidance. You should HOLD your atorvastatin while on Paxlovid as they can interact. Total Time Total Time Spent Total Time Spent (In Minutes): 35 min Total Time Includes: Examination of the Patient, Discharge Planning and Medication Reconciliation Coding Level of Care Code 27309 INP/OBS DISCH >30 MIN Diagnoses COVID-19 U07.1 Hypoxia R09.02 Generalized weakness R53.1 Benign essential hypertension I10 Mixed hyperlipidemia E78.2 Hyperlipidemia type: mixed hyperlipidemia Acquired hypothyroidism E03.9 Hypothyroidism type: acquired Uncontrolled type 2 diabetes mellitus with hyperglycemia E11.65 Diabetes mellitus type: type 2 Glycemic state: with hyperglycemia
[2024-04-03] MEDS ORDERED: ASCORBIC ACID 500 MG TAB PO SCH (21:00)
[2024-04-03] MEDS ORDERED: CHOLECALCIFEROL 25 MCG (1000 UNITS) TAB PO SCH (21:00)
[2024-04-03] MEDS ORDERED: VITAMIN B COMPLEX TAB PO SCH (21:00)
[2024-04-03] MEDS ORDERED: LEVOTHYROXINE SODIUM 88 MCG TABLET PO SCH (21:00)
[2024-04-03] MEDS ORDERED: ATORVASTATIN 40 MG TAB PO SCH (21:00)
--- NOTE | 2024-04-03 21:23 | Electrocardiogram Report ---
Test Reason : Blood Pressure : */* mmHG Vent. Rate : 115 BPM Atrial Rate : 115 BPM P-R Int : 188 ms QRS Dur : 74 ms QT Int : 318 ms P-R-T Axes : 70 14 83 degrees QTcB Int : 439 ms Sinus tachycardia Possible Left atrial enlargement Septal infarct , age undetermined Nonspecific T wave abnormality Abnormal ECG When compared with ECG of 17-Feb-2024 12:22, Septal infarct is now Present Confirmed by Evan Crawford ([id number]) on 04/03/2024 9:22:59 PM Referred By: REFERRED SELF Confirmed By: Evan Crawford
[2024-04-04] MEDS ORDERED: REMDESIVIR 100 MG in SODIUM CHLORIDE 0.9% 230 ML IV SCH (12:00)
== END 2024-04-03 12:24 | disposition home or self-care (01) | DRG 177 ==
LOC: ED 20:17 → SUATTDRO 04-03 01:07 → 2S 04-03 01:07 → INTOOBSV 04-03 01:07 → 2S 04-03 01:38